=== PATIENT | female | born 1965 | race Caucasian/White ===

== ENCOUNTER 2023-05-29 06:51 | Emergency (ER) | payer OTHER ==
[2023-05-29 07:02] VITALS: RESP 18; BMI 36.5
[2023-05-29] MEDS ORDERED: ACETAMINOPHEN 500 MG TABLET (FP) PO ONE (08:18)
[2023-05-29] MEDS ORDERED: ACETAMINOPHEN 500 MG TABLET (FP) ONE (08:45)
[2023-05-29] MEDS ORDERED: LIDOCAINE VISCOUS 2% ORAL/TOP 15 ML UNIT-DOSE CUP MM ONE ×2 (09:12→09:22)
[2023-05-29] MEDS ORDERED: oxyCODONE HCL 5 MG TABLET PO ONE (09:23)
[2023-05-29] MEDS ORDERED: oxyCODONE HCL 5 MG TABLET ONE (09:35)
[2023-05-29 14:13] VITALS: BP 118/71; PULSE 110; TEMP 98.1
[2023-05-29] MEDS ORDERED: ACETAMINOPHEN 325 MG TABLET (FP) PO ONE (22:07)
== END 2023-05-29 14:27 | disposition home or self-care (01) ==
LOC: JER 06:51
DX: S83.91XA Sprain of unspecified site of right knee, initial encounter (principal); S83.92XA Sprain of unspecified site of left knee, initial encounter; M17.0 Bilateral primary osteoarthritis of knee; W01.198A Fall on same level from slipping, tripping and stumbling with subsequent striking against other object, initial encounter; Y92.9 Unspecified place or not applicable
CPT/HCPCS: 70450-TC; 71045-TC-FY; 72125-TC; 73521-TC-FY; 73562-TC-LT-FY; 73562-TC-RT-FY; 99284-25

== ENCOUNTER 2023-09-01 17:22 | Inpatient (IN) | payer OTHER ==
[2023-09-01 18:04] VITALS: BMI 35.7
[2023-09-01 18:58] LABS: BASO % 0.3 % (0-2.0); EOS % 2.9 % (0-4.5); HEMATOCRIT 34.8 % (32.4-45.2); HEMOGLOBIN 11.4 GM/dL (10.7-15.3); MCH 25.6 pg (25.7-33.7); MCHC 32.8 g/dl (32.0-36.0); MEAN CELL VOLUME 78.2 fl (80-96); MEAN PLT VOLUME 7.7 fl (7.5-11.1); MONO % 8.3 % (3.8-10.2); NEUT % 60.5 % (42.8-82.8); PLATELET COUNT 307 10^3/uL (134-434); RBC 4.45 M/mm3 (3.60-5.2); RDW 16.2 % (11.6-15.6); WHITE BLOOD COUNT 8.4 K/mm3 (4.0-10.0)
[2023-09-01 19:05] LABS: INR 1.17 (0.83-1.09); PROTHROMBIN TIME (PATIENT) 13.6 SEC (9.7-13.0)
[2023-09-01 19:07] LABS: ACTIVATED PTT 30.4 SECONDS (25.2-36.5)
[2023-09-01 19:19] LABS: POTASSIUM 4.3 mmol/L (3.5-5.1)
[2023-09-01 19:22] LABS: ALBUMIN 3.2 g/dl (3.4-5.0); CALCIUM 8.6 mg/dL (8.5-10.1)
[2023-09-01 19:23] LABS: BLOOD UREA NITROGEN 22.6 mg/dL (7-18); MAGNESIUM 2.3 mg/dL (1.8-2.4)
[2023-09-01 19:26] LABS: CREATININE 1.5 mg/dL (0.55-1.3)
[2023-09-01 19:27] LABS: BILIRUBIN,TOTAL 0.5 mg/dL (0.2-1); TOT PROT 7.1 g/dl (6.4-8.2)
[2023-09-01] MEDS ORDERED: ACETAMINOPHEN 325 MG TABLET (FP) PO ONE (21:35)
[2023-09-01] MEDS ORDERED: ACETAMINOPHEN 325 MG TABLET (FP) ONE (21:40)
[2023-09-01 21:46] LABS: EPI CELLS >36 /uL (0-25.1); HYALINE CASTS 1 /uL (0-3.1); PH,URINE 5.5 (5.0-8.0); URINE APPEARANCE CLOUDY; URINE BACTERIA >9,000 /uL (0-1359); URINE BILIRUBIN NEGATIVE (NEGATIVE); URINE COLOR YELLOW; URINE GLUCOSE (UA) NEGATIVE (NEGATIVE); URINE KETONE TRACE (NEGATIVE); URINE LEUK ESTERASE 2+ (NEGATIVE); URINE NITRITE POSITIVE (NEGATIVE); URINE PROTEIN NEGATIVE (NEGATIVE); URINE RBC 223.1 /uL (0-23.9); URINE UROBILINOGEN 0.2 mg/dL (0.2-1.0); URINE WBC 329 /uL (0-25.8)
[2023-09-01] MEDS ORDERED: CEFTRIAXONE 1 GM in DEXTROSE 5%-WATER - 100 ML IVPB ONE (23:22)
[2023-09-02] MEDS ORDERED: CEFTRIAXONE 1 GM/50 ML BAG ONE (00:08)
[2023-09-02] MEDS ORDERED: ASPIRIN 325 MG TABLET PO ONE (00:45)
[2023-09-02] MEDS ORDERED: ATORVASTATIN CA 40 MG TABLET (FP) PO ONE (00:58)
[2023-09-02] MEDS ORDERED: ATORVASTATIN CA 40 MG TABLET (FP) ONE ×2 (01:57→20:07)
[2023-09-02] MEDS ORDERED: ASPIRIN 325 MG TABLET ONE (01:57)
[2023-09-02 08:17] LABS: METHADONE, UR NEGATIVE (NEGATIVE); OPIATES, URI NEGATIVE (NEGATIVE); URINE AMPHETAMINES NEGATIVE (NEGATIVE)
[2023-09-02 08:18] LABS: PHENCYCLIDINE,URINE NEGATIVE (NEGATIVE); URINE BARBITURATES NEGATIVE (NEGATIVE); URINE BENZODIAZEPINES NEGATIVE (NEGATIVE)
[2023-09-02 08:33] LABS: COCAINE, UR NEGATIVE (NEGATIVE)
[2023-09-02 09:00] LABS: HEMATOCRIT 34.6 % (32.4-45.2); MCH 25.3 pg (25.7-33.7); MCHC 31.8 g/dl (32.0-36.0); MEAN CELL VOLUME 79.5 fl (80-96); MEAN PLT VOLUME 7.9 fl (7.5-11.1); PLATELET COUNT 267 10^3/uL (134-434); RBC 4.35 M/mm3 (3.60-5.2); RDW 15.9 % (11.6-15.6); WHITE BLOOD COUNT 7.6 K/mm3 (4.0-10.0)
[2023-09-02 09:20] LABS: POTASSIUM 4.2 mmol/L (3.5-5.1)
[2023-09-02] MEDS ORDERED: PARoxetine HCL 10 MG TABLET ONE (09:21)
[2023-09-02] MEDS: METOPROLOL TARTRATE 50 MG TABLET (FP) PO SCH (09:31)
[2023-09-02] MEDS: PARoxetine HCL 20 MG TABLET PO SCH (09:31)
[2023-09-02] MEDS: ASPIRIN 81 MG CHEWABLE TABLETS PO SCH (09:31)
[2023-09-02 09:32] LABS: ALBUMIN 3.1 g/dl (3.4-5.0); BLOOD UREA NITROGEN 21.8 mg/dL (7-18)
[2023-09-02 09:33] LABS: CALCIUM 8.9 mg/dL (8.5-10.1)
[2023-09-02 09:35] LABS: CREATININE 1.5 mg/dL (0.55-1.3); PHOSPHOROUS 3.8 mg/dL (2.5-4.9)
[2023-09-02 09:37] LABS: BILIRUBIN,TOTAL 0.5 mg/dL (0.2-1); TOT PROT 6.9 g/dl (6.4-8.2)
[2023-09-02] MEDS ORDERED: ASPIRIN 325 MG TABLET PO SCH (10:00)
[2023-09-02] MEDS ORDERED: ALPRAZolam 1 MG TABLET PO PRN (18:05)
[2023-09-02] MEDS ORDERED: ALPRAZolam 1 MG TABLET ONE (19:20)
[2023-09-02] MEDS ORDERED: ATORVASTATIN CA 40 MG TABLET (FP) PO SCH (22:00)
[2023-09-03] MEDS ORDERED: CEFTRIAXONE 1 GM in DEXTROSE 5%-WATER - 50 ML IVPB SCH
[2023-09-03] MEDS ORDERED: CEFTRIAXONE 1 GM/50 ML BAG ONE (00:22)
[2023-09-03 07:21] LABS: BASO % 0.2 % (0-2.0); EOS % 2.6 % (0-4.5); HEMOGLOBIN 11.3 GM/dL (10.7-15.3); LYMPH % 24.9 % (8-40); MCH 25.4 pg (25.7-33.7); MCHC 31.4 g/dl (32.0-36.0); MEAN CELL VOLUME 80.9 fl (80-96); MONO % 7.2 % (3.8-10.2); NEUT % 65.1 % (42.8-82.8); PLATELET COUNT 255 10^3/uL (134-434); RBC 4.45 M/mm3 (3.60-5.2); RDW 15.7 % (11.6-15.6); WHITE BLOOD COUNT 7.4 K/mm3 (4.0-10.0)
[2023-09-03 07:56] LABS: POTASSIUM 4.1 mmol/L (3.5-5.1)
[2023-09-03 07:58] LABS: CALCIUM 8.8 mg/dL (8.5-10.1)
[2023-09-03 07:59] LABS: BLOOD UREA NITROGEN 27.5 mg/dL (7-18)
[2023-09-03 08:02] LABS: CREATININE 1.4 mg/dL (0.55-1.3)
[2023-09-03 08:03] LABS: BILIRUBIN,TOTAL 0.4 mg/dL (0.2-1); TOT PROT 6.8 g/dl (6.4-8.2)
[2023-09-03] MEDS ORDERED: METOPROLOL TARTRATE 50 MG TABLET (FP) ONE (09:49)
[2023-09-03] MEDS ORDERED: PARoxetine HCL 10 MG TABLET ONE (09:50)
[2023-09-03] MEDS ORDERED: ASPIRIN 81 MG CHEWABLE TABLETS ONE (09:50)
[2023-09-03] MEDS: ASPIRIN 81 MG CHEWABLE TABLETS PO SCH (09:59)
[2023-09-03] MEDS: PARoxetine HCL 20 MG TABLET PO SCH (09:59)
[2023-09-03] MEDS: METOPROLOL TARTRATE 50 MG TABLET (FP) PO SCH (09:59)
[2023-09-03 16:57] VITALS: BP 148/85; PULSE 85; RESP 18; TEMP 98
== END 2023-09-03 16:00 | disposition home or self-care (01) | DRG 69 ==
LOC: JER 17:22 → JERBED 21:15 → OBSVTOIN 09-02 00:51
PROVIDERS: ADMIT Internal Medicine
DX: G45.9 Transient cerebral ischemic attack, unspecified (principal); R44.3 Hallucinations, unspecified; N39.0 Urinary tract infection, site not specified; I12.9 Hypertensive chronic kidney disease with stage 1 through stage 4 chronic kidney disease, or unspecified chronic kidney disease; N18.9 Chronic kidney disease, unspecified; E78.5 Hyperlipidemia, unspecified; M17.0 Bilateral primary osteoarthritis of knee; R41.3 Other amnesia; L68.0 Hirsutism; F32.A Depression, unspecified; Z99.3 Dependence on wheelchair; B96.20 Unspecified Escherichia coli [E. coli] as the cause of diseases classified elsewhere; E66.9 Obesity, unspecified; Z68.35 Body mass index [BMI] 35.0-35.9, adult
CPT/HCPCS: 0241U-QW; 36415; 70450-TC; 70551-TC; 71045-TC-FY; 80053; 80061; 80307; 81003; 82607; 82962; 83036; 83735; 84100; 84439; 84443; 84484; 85025; 85027; 85610; 85730; 86850; 86900; 86901; 87086; 87186; 93005; 93010; 93306-TC; 93880-TC; 99285-25; G0378